=== PATIENT | male | born 1955 | race Caucasian/White ===

== ENCOUNTER → 2019-05-17 09:44 | Outpatient (BNVA) | payer BC, SELFPAY | PROVIDERS: Visit Provider Nurse Practitioner Family | DX: I10 Essential (primary) hypertension (principal); E78.5 Hyperlipidemia, unspecified | CPT/HCPCS: 80053; 80061; 85025 ==

== ENCOUNTER 2022-05-09 08:35 | Emergency (ER) | payer OTHER, SELFPAY ==
[2022-05-09 08:38] VITALS: BP 141/76; PULSE 64; RESP 18; TEMP 36.6; O2SAT 98
--- NOTE | 2022-05-09 08:41 | XR_ITS ---
WS: [id number] PORTABLE CHEST HISTORY: cp COMPARISON: None available. Lungs are clear and well expanded. No pleural effusion or pneumothorax. Cardiac size: Normal. Mediastinum/Aorta: Normal mediastinum. No osseous abnormality seen. XR/XR chest 1V portable [id number] IMPRESSION: Unremarkable portable chest.
[2022-05-09 08:57] VITALS: BP 129/89; PULSE 65; RESP 27; O2SAT 96
--- NOTE | 2022-05-09 08:58 | ED_ITS ---
HPI - Chest Pain General: Chief Complaint: Chest Pain Stated Complaint: Chest pain Time Seen by Provider: 05/09/22 08:50 History of Present Illness: This patient is a 66 year old presenting with chest pain that started an hour ago while walking. He describes a pressure that went across his whole chest, and had an ache in his neck and shoulders as well. He says that he felt lightheaded, but no diaphoresis or nausea. He did feel short of breath. On my eval the chest pain was gone, but he still feels lightheaded and appears shaky. He has a history of high blood pressure, choles terol and is a smoker. He has never had any evaluation of his heart. He takes meds for chornic back pain prescribed by pain management. No change in his pain symptoms today. He took 2 Excedrin for his chest pain (500 mg aspirin). Associated symptoms: Deny abdominal pain, dyspnea, fever(s), nausea or vomiting Risk Factors: Coronary artery disease risk factors: smoking history, hyperlipidemia and hypertension Review of Systems Const: Denies: fever(s) or chills Eyes: Denies: change in vision ENMT: Denies: odynophagia Card: Denies: swelling of feet/ankles Resp: Denies: dyspnea GI: Denies: abdominal pain, nausea or vomiting : Denies: flank pain Musc: Reports: back pain; Denies: neck pain Skin/Breast: Denies: rash Neuro: Reports: dizziness; Denies: headache(s), numbness in extremities or weakness in extremities Simon/Lymph: Denies: easy bruising or easy bleeding PFS ED PFSH: Family History (Updated 05/17/19 @ 07:28 by Camila Rudolph LPN) Mother Diabetes Stroke Social History (Updated 11/22/19 @ 08:29 by Azalia Galindo LPN, RT) Smoking and tobacco status: current every day smoker cigarettes Packs smoked per day: 1 Years cigarettes smoked: 30 Second hand smoke exposure: Yes Household members: significant other Marital status: Life Partner Current occupational status: employed History of recent travel: No Current gender identity: Male Physical Exam Const: COMMON NORMALS: no acute distress, patient oriented x3, no limitations and alert GENERAL APPEARANCE: cooperative and anxious HENMT: HEAD & SCALP: normal to inspection FACE & SINUS: normal facial exam Eye: GENERAL EYE: appearance normal, both eyes and all related structures Neck/C-Spine: COMMON NORMALS: supple, no meningeal signs and no JVD Chest: COMMONS NORMALS: normal inspection of the chest Resp: COMMON NORMALS: normal respiratory effort, No use of accessory muscles and clear to auscultation bilaterally AUSCULTATION: clear to auscultation bilaterally Cardio: COMMON NORMALS: no JVD, regular rate, regular rhythm and No murmurs present (Cardio) RATE: regular rate RHYTHM: regular rhythm GI: COMMON NORMALS: Normal to inspection, nondistended, normoactive bowel sounds present, Soft to palpation and non-tender INSPECTION: Yes normal to inspection AUSCULTATION: Yes normoactive bowel sounds PALPATION: Yes Soft to palpation Back/Pelvis: COMMON NORMALS: thoracic and lumbar spine normal to inspection Extremity: COMMON NORMALS: normal to inspection Neuro: COMMON NORMALS: patient oriented x3, moves all extremities, no focal motor deficits and no sensory deficits noted SENSORIUM/ORIENTATION: Yes alert MENINGEAL SIGNS: Yes no meningeal signs Psych: COMMON NORMALS: mental status grossly normal, cooperative and normal affect Skin: COMMON NORMALS: no rashes or lesions noted and turgor normal GENERAL SKIN EXAM: no rashes or lesions noted and turgor normal Course Vital Signs: Vital signs: Vital Signs Temperature 97.8 F 05/09/22 08:38 Pulse Rate 66 05/09/22 09:23 Respiratory Rate 13 05/09/22 09:23 Blood Pressure 140/83 05/09/22 09:23 Pulse Oximetry 98 05/09/22 09:23 Oxygen Delivery Me thod 05/09/22 09:23 MDM - Chest Pain Medical Decision Making Chest pain - multiple risk factors for coronary artery disease. Fairly typical presentation of pain. EKG unremarkable. CXR, CBC, CMP, troponin all pending. Troponin were neg - however the patient does have a moderate HEART score and has never had a cardiac evaluation. I asked him to allow me to admit him today for further cardiac evaluation and we discussed that the ED work up is not adequate to fully evaluate his cardiac risk. He understands, but refused to stay in the hospital. He will follow up with his PCP and discuss a stress test and was willing to accept the risk of doing that as an outpatient. Lab Data 05/09/22 09:10 05/09/22 09:10 Radiology Impressions Chest X-Ray 05/09/22 08:41 IMPRESSION: Unremarkable portable chest. Chest CTA 05/09/22 10:45 IMPRESSION: 1. No pulmonary embolism. 2. Low lung volumes and hazy opacifications. Hazy opacification may be due to the poor inspiration and crowding the lung markings. Very mild pneumonitis may appear similar but thought less likely. Laboratory Results WBC 11.1 10^3/uL (4.0-10.0) H 05/09/22 09:10 RBC 5.31 10^6/uL (4.1-5.3) H 05/09/22 09:10 Hgb 16.0 g/dL (11.7-16.6) 05/09/22 09:10 Hct 49.2 % (42.0-52.0) 05/09/22 09:10 MCV 92.7 fl (80-94) 05/09/22 09:10 MCH 30.1 pg (28.0-34.0) 05/09/22 09:10 MCHC 32.5 g/dL (30.0-36.0) 05/09/22 09:10 RDW 13.5 % (12.1-15.1) 05/09/22 09:10 Plt Count 253 10^3/cmm (130-400) 05/09/22 09:10 MPV 11.9 fL (7.4-10.4) H 05/09/22 09:10 Neut % (Auto) 64.5 % 05/09/22 09:10 Lymph % (Auto) 27.0 % 05/09/22 09:10 Teller % (Auto) 6.3 % 05/09/22 09:10 Eos % (Auto) 1.4 % 05/09/22 09:10 Baso % (Auto) 0.4 % 05/09/22 09:10 Neut # (Auto) 7.17 10^3/uL (1.8-7.7) 05/09/22 09:10 Lymph # (Auto) 3.0 10^3/uL (0.8-4.8) 05/09/22 09:10 Teller # (Auto) 0.7 10^3/uL (0.2-0.9) 05/09/22 09:10 Eos # (Auto) 0.2 10^3/uL (0.0-0.8) 05/09/22 09:10 Baso # (Auto) 0.0 10^3/uL (0.0-0.1) 05/09/22 09:10 Nucleated RBC % (auto) 0.2 % 05/09/22 09:10 Nucleated RBCs # 0.0 /100WBC 05/09/22 09:10 D-Dimer 1.82 ug/mIFEU (0-0.59) H 05/09/22 09:10 Sodium 129 mmol/L (136-145) L 05/09/22 09:10 Potassium 4.3 mmol/L (3.5-5.1) 05/09/22 09:10 Chloride 95 mmol/L (98-107) L 05/09/22 09:10 Carbon Dioxide 20 mmol/L (22-29) L 05/09/22 09:10 Anion Gap 18.3 (5-19) 05/09/22 09:10 BUN 13 mg/dL (8-23) 05/09/22 09:10 Creatinine 0.8 mg/dL (0.7-1.2) 05/09/22 09:10 GFR Calculation 97.3 mL/min (90-130) 05/09/22 09:10 Glucose 113 mg/dL (65-115) 05/09/22 09:10 Calculated Osmolality 269 mOsm/kg (285-295) L 05/09/22 09:10 Calcium 8.9 mg/dL (8.5-10.5) 05/09/22 09:10 Total Bilirubin 0.8 mg/dL (0.15-1.2) 05/09/22 09:10 AST 18 U/L (0-40) 05/09/22 09:10 ALT 16 U/L (0-41) 05/09/22 09:10 Alkaline Phosphatase 77 U/L (40-130) 05/09/22 09:10 Troponin T Baseline 6 ng/L (0-15) 05/09/22 09:10 Troponin T 120 Minute 9.90 ng/L (0-15) 05/09/22 11:33 Delta Troponin T 3.90 ABS# (0-10) 05/09/22 11:33 Troponin T Hi Sens 6Hr 7.35 ng/L (0-15) 05/09/22 15:20 Troponin T Hi Sens 6Hr Delta 1.35 ng/L (0-12) 05/09/22 15:20 NT-Pro-B Natriuret Pep 23 pg/mL (0-125) 05/09/22 09:10 Total Protein 7.7 g/dL (6.6-8.7) 05/09/22 09:10 Albumin 4.5 g/dL (3.5-5.2) 05/09/22 09:10 Globulin 3.2 g/dL (1.3-4.6) 05/09/22 09:10 Lipase 28 U/L (13-60) 05/09/22 09:10 Discharge Plan Discharge Patient Disposition: Home Clinical Impression: Chest pain, Hypertension, Elevated cholesterol, Tobacco dependence Condition: Stable Prescriptions: No Action loratadine [Claritin] 10 mg tablet 10 mg PO QDAY gabapentin 300 mg capsule 300 mg PO QDAY carisoprodol [Soma] 350 mg tablet 175 - 350 mg PO BEDTIME hydrocodone-acetaminophen 5-325 mg tablet 1 tab PO TID PRN (Reason: Pain) atorvastatin 20 mg tablet 20 mg PO DAILY lisinopril-hydrochlorothiazide 20-12.5 mg tablet 1 tab PO DAILY Discharge Orders: Discharge ED (Routine); Ordered 05/09/22 Ordered By: Jeanette eKndall Referrals: Mignon Gunter APN [Primary Care Provider] - Discharge Diet: Advance as tolerated Discharge Activity: Limit activity as instructed Patient Instructions: Opioid Safety, Pain Management Activity Restrictions/Additional Instructions: Follow up with your PCP - we strongly recommend that you have a cardiac evaluation including a stress test in the near future. Avoid exerting yourself, return to the ED if further episodes of chest pain occur. Coding Level of Care Code ED Operations Program Manager for [facility] Fwd Exam Comprehensive
[2022-05-09 09:09] VITALS: BP 129/89; PULSE 74; RESP 12; O2SAT 97
[2022-05-09 09:21] LABS: Basophils % 0.4 %; Eosinophils # 0.2 10^3/uL (0.0-0.8); Eosinophils % 1.4 %; Hematocrit 49.2 % (42.0-52.0); Mean Corpuscular HGB Conc 32.5 g/dL (30.0-36.0); Mean Corpuscular Hemoglobin 30.1 pg (28.0-34.0); Mean Corpuscular Volume 92.7 fl (80-94); Mean Platelet Volume 11.9 fL (7.4-10.4); Monocytes # 0.7 10^3/uL (0.2-0.9); Monocytes % 6.3 %; Neutrophils # 7.17 10^3/uL (1.8-7.7); Neutrophils % 64.5 %; Nucleated Red Blood Cells % 0.2 %; Platelet Count 253 10^3/cmm (130-400); Red Blood Count 5.31 10^6/uL (4.1-5.3); Red Cell Distribution Width 13.5 % (12.1-15.1); White Blood Count 11.1 10^3/uL (4.0-10.0)
[2022-05-09 09:23] VITALS: BP 140/83; PULSE 66; RESP 13; O2SAT 98
[2022-05-09 09:38] LABS: Troponin(5th) Baseline 6 ng/L (0-15)
[2022-05-09 09:57] LABS: Alanine Aminotransferase 16 U/L (0-41); Albumin Level 4.5 g/dL (3.5-5.2); Alkaline Phosphatase 77 U/L (40-130); Aspartate Amino Transferase 18 U/L (0-40); Blood Urea Nitrogen 13 mg/dL (8-23); Calcium 8.9 mg/dL (8.5-10.5); Carbon Dioxide 20 mmol/L (22-29); Chloride 95 mmol/L (98-107); Creatinine Clr Calc Pharmacy 102.6533; Globulin 3.2 g/dL (1.3-4.6); Glomerular Filtration Rate 97.3 mL/min (90-130); Glucose 113 mg/dL (65-115); NT Pro B Type Natriuretic Pept 23 pg/mL (0-125); Osmolality Calculated 269 mOsm/kg (285-295); Sodium 129 mmol/L (136-145); Total Bilirubin 0.8 mg/dL (0.15-1.2); Total Protein 7.7 g/dL (6.6-8.7)
[2022-05-09 09:58] LABS: Anion Gap 18.3 (5-19); Potassium 4.3 mmol/L (3.5-5.1)
[2022-05-09 10:18] LABS: D Dimer 1.82 ug/mIFEU (0-0.59)
[2022-05-09 10:22] LABS: Lipase 28 U/L (13-60)
--- NOTE | 2022-05-09 10:41 | ECG_ITS ---
[facility] Test Date: 2022-05-09 Pat Name: Johnny Rae Department: Room: Gender: Male [place] Salter: : 1955 Requested By: Matthew Manning Order Number: [id number] Mary Fish MD: Osbaldo Quevedo M.D. Measurements Intervals [place] Rate: 67 P: 55 ID: [id number] QRS: -36 QRSD: 104 T: 45 QT: 383 QTc: 406 Interpretive Statements SINUS RHYTHM LEFT AXIS DEVIATION [QRS AXIS < -30] No previous ECG available for comparison Electronically Signed On 05-09-2022 14:41:34 SPORTS EQUIPMENT REPAIRER by Osbaldo Quevedo M.D. [id number]
--- NOTE | 2022-05-09 10:45 | CT_ITS ---
WS: [id number] CT CHEST ANGIOGRAPHY WITH REFORMATS HISTORY: CP, SOB TECHNIQUE: Contiguous axial images are obtained through the chest during arterial injection of intrav enous contrast. Images are reconstructed to evaluate the pulmonary arteries. MIP imaging also reviewe d. All CT scans at [facility] use at least one of these dose optimization techniques: automat ed exposure control; mA and/or kV adjustment per patient size (includes targeted exams where dose is matched to clinical indication); or iterative reconstruction. CONTRAST: Omnipaque 350; 83 mL IV. DLP: 428.20 mGy.cm COMPARISON: None available. Good opacification of the pulmonary arteries. No central pulmonary emboli. No pulmonary embolus throu gh the segmental branches. Atherosclerosis aorta is minimal. No RIGHT heart strain. No pericardial or pleural effusions. No mediastinal or hilar adenopathy. There is mild hazy attenuation throughout both lungs with a few scattered blebs in the periphery of t he lower lobes. No areas of dense consolidation. No mass. Small hiatal hernia and hepatic steatosis. No destructive bone lesions. CT/CT angio chest PE protcl [id number] IMPRESSION: 1. No pulmonary embolism. 2. Low lung volumes and hazy opacifications. Hazy opacification may be due to the poor inspiration and crowding the lung markings. Very mild pneumonitis may appear similar but thought less likely.
[2022-05-09] MEDS: iohexol 350 mg/mL 500 mL Btl (per mL) IV (11:12)
[2022-05-09 15:44] LABS: Troponin 5 6HR 7.35 ng/L (0-15)
--- NOTE | 2022-05-09 16:13 | ECG_ITS ---
[facility] Test Date: 2022-05-09 Pat Name: Johnny Rae Department: Room: Gender: Male Recovery Agent: : 1955 Requested By: Matthew Manning Order Number: [id number] Polina MD: Osbaldo Quevedo M.D. Measurements Intervals [place] Rate: 63 P: 17 UT: 152 QRS: -43 QRSD: 86 T: 37 QT: 362 QTc: 373 Interpretive Statements SINUS RHYTHM INFERIOR MYOCARDIAL INFARCTION , PROBABLY OLD [40+ ms Q WAVE AND/OR ST/T ABNORMALITY IN II/aVF] ANTEROSEPTAL MYOCARDIAL INFARCTION , PROBABLY OLD [40+ ms Q WAVE IN V1-V4] Compared to ECG 05/09/2022 10:52:43 Myocardial infarct finding now present Left-axis deviation no longer present Electronically Signed On 05-09-2022 17:52:54 SAUSAGE COOKER by Osbaldo Quveedo M.D. [id number]
[2022-05-09 16:29] LABS: Troponin 5 6HR Delta 1.35 ng/L (0-12)
== END 2022-05-09 16:56 | disposition home or self-care (01) ==
PROVIDERS: Physician Assistant; Emergency Provider Emergency Medicine; PCP Nurse Practitioner Family
DX: R07.9 Chest pain, unspecified (principal); E78.00 Pure hypercholesterolemia, unspecified; I10 Essential (primary) hypertension; F17.210 Nicotine dependence, cigarettes, uncomplicated
CPT/HCPCS: 36415; 71045; 71275; 80053; 83690; 83880; 84484; 85025; 85378; 93005; 99285; Q9967